=== PATIENT | male | born 1965 | race Caucasian/White ===

== ENCOUNTER 2018-01-04 10:59 | Outpatient (CLI) | payer OTHER ==
--- NOTE | 2018-01-04 11:30 | RAD ---
TWO VIEWS OF THE CHEST: History: Cough. FINDINGS: Two views of the chest show normal sized cardiomediastinal silhouette. There is no evidence of consol idation, mass, or pleural effusion. The bones are unremarkable. IMPRESSION: No evidence of acute cardiopulmonary disease. POS: [facility]
== END 2018-01-04 11:00 | disposition home or self-care (01) ==
LOC: MADRAD 10:59
PROVIDERS: ATTEND Family Medicine
DX: R05 Cough (principal)
CPT/HCPCS: 71046

== ENCOUNTER 2021-02-28 10:50 | Outpatient (CLI) | payer OTHER | END 2021-02-28 10:51 | disposition home or self-care (01) | LOC: MADRAD 10:50 | PROVIDERS: ATTEND Family Medicine | DX: M50.10 Cervical disc disorder with radiculopathy, unspecified cervical region (principal) | CPT/HCPCS: 72052 ==

== ENCOUNTER 2021-11-14 11:13 | Outpatient (CLI) | payer OTHER | END 2021-11-14 11:14 | disposition home or self-care (01) | LOC: MADLAB 11:13 → MADRAD 11:14 | PROVIDERS: ATTEND Neurological Surgery | DX: M51.36 Other intervertebral disc degeneration, lumbar region (principal); M50.30 Other cervical disc degeneration, unspecified cervical region; Z98.1 Arthrodesis status | CPT/HCPCS: 72040; 72100 ==

== ENCOUNTER 2022-05-29 13:44 | Outpatient (CLI) | payer OTHER | END 2022-05-29 13:45 | disposition home or self-care (01) | LOC: MADRAD 13:44 | PROVIDERS: ATTEND Family Medicine | DX: U07.1 COVID-19 (principal) | CPT/HCPCS: 71046 ==

== ENCOUNTER 2023-08-04 11:21 | Outpatient (CLI) | payer OTHER | END 2023-08-04 11:22 | disposition home or self-care (01) | LOC: MADRAD 11:21 | PROVIDERS: ATTEND Family Medicine | DX: M17.12 Unilateral primary osteoarthritis, left knee (principal); M25.462 Effusion, left knee ==